=== PATIENT | female | born 1950 | race Caucasian/White ===

== ENCOUNTER 2018-10-06 20:36 | Inpatient (IN) | payer MEDICARE, OTHER ==
[~2018-10-06] VITALS: Ht 162.6 cm; Wt 101.6 kg
[2018-10-06 21:48] LABS: BASOPHILS ABSOLUTE AUTO 0.01 K/mm3 (0.00-0.23); BASOPHILS PERCENT AUTO 0 % (0-2); Hemoglobin 9.6 g/dL (11.5-16.0); LYMPHOCYTES ABSOLUTE AUTO 0.47 K/mm3 (0.84-5.20); LYMPHOCYTES PERCENT AUTO 4 % (21-46); MONOCYTES ABSOLUTE AUTO 1.49 K/mm3 (0.16-1.47); MONOCYTES PERCENT AUTO 14 % (4-13); Mean Corpuscular HGB 27.7 pg (26.0-34.0); Mean Corpuscular Volume 90 fL (80-100); Mean Platelet Volume 10.7 fL (9.1-12.4); Platelet Count 67 K/mm3 (150-400); RDW Coefficient Variation 15.9 % (11.7-14.2); RDW Standard Deviation 52.3 fL (35.1-46.3); Red Blood Cell Count 3.46 M/mm3 (3.80-5.20); White Blood Cell Count 10.98 K/mm3 (4.00-11.30)
[2018-10-06 21:50] LABS: EOSINOPHILS ABSOLUTE AUTO 0.02 K/mm3 (0.00-0.68); EOSINOPHILS PERCENT AUTO 0 % (0-6); IMMATURE GRAN ABSOLUTE AUTO 0.04 K/mm3 (0.00-0.10); IMMATURE GRAN PERCENT AUTO 0 % (0-1); NEUTROPHILS ABSOLUTE AUTO 8.95 K/mm3 (1.96-9.15); NEUTROPHILS PERCENT AUTO 81 % (41-73)
[2018-10-06 22:02] LABS: International Normalized Ratio 1.14; Prothrombin Time Results 11.9 Sec (9.7-11.5)
[2018-10-06 22:04] LABS: Albumin, Blood 2.6 g/dL (3.4-5.0); Albumin/Globulin Ratio 0.7 (0.8-1.8); Bilirubin, Total 1.9 mg/dL (0.1-1.0); Calcium, Blood 7.7 mg/dL (8.5-10.1); Creatinine, Blood 1.08 mg/dL (0.40-1.00); Globulin, Blood 3.7 g/dL (2.2-4.0); Potassium, Blood 3.4 mmol/L (3.5-5.5); Total Protein, Blood 6.3 g/dL (6.4-8.2)
[2018-10-07 00:11] LABS: Magnesium, Blood 1.6 mg/dL (1.6-2.4); Phosphorus, Blood 2.4 mg/dL (2.5-4.9)
--- NOTE | 2018-10-07 00:45 | NUR ---
RECEIVED HAND OFF FROM ER NURSE USING SBAR. TRANSPORTED TO ICU ROOM 12 VIA STRETCHER. TRANSFERED TO BED WITH FULL STAFF ASSISTANCE, TOLERATED WELL. LYING IN LOW DAVIS WITH EYES CLOSED. PT IS AROUSABLE BUT IS CONFUSED. ORIENTED TO SELF ONLY. APPARENT ADVERSE REACTION TO ATIVAN GIVEN IN ER. ORIENTED TO ROOM, CALL SYSTEM, AND POC, UNABLE TO VOICE UNDERSTANDING, WILL REATTEMPT LATER IN SHIFT. 20G PIV TO RIGHT HAND IS PATENT, FLUSHING WITH EASE WHILE INFUSING PROTONIX AT 10ML/HR. LEFT FA 20G PIV IS PATENT, FLUSHING WITH EASE WHILE INFUSING SANDOSTATIN AT 25ML/HR. LEFT AC 18G PIV IS PATENT, FLUSHING WITH EASE WHILE INFUSING BANANA BAG AT 200ML/HR. RESPIRATIONS EVEN AND UNLABORED ON ROOM AIR. LUNG SOUNDS COARSE THROUGHOUT AND DIMINISHED IN BASES BILATERALLY. ABDOMEN OBESE AND DISTENDED. BOWEL SOUNDS PRESENT IN ALL QUADS. CURRENTLY INCINTUNENT OF BOWEL AND BLADDER, WEARING DEPENDS. ORDERED NPO, INFORMED OF DIETARY STATUS, CONTINUES TO ASK FOR ICE WATER EACH TIME SHE WAKES UP. ORAL CARE PERFORMED AND MOUTH MOUSTUREIZER APPLIED, TOLERATED WELL. SCD'S TO BLE. DENIES PAIN, DISCOMFORT, OR FURTHER NEEDS AT THIS TIME. SAFETY MEASURES IN PLACE. WILL CONTINUE TO MONITOR.
[2018-10-07 03:31] LABS: Hematocrit 27.7 % (33.0-51.0); Hemoglobin 8.4 g/dL (11.5-16.0); Mean Corpuscular HGB 28.2 pg (26.0-34.0); Mean Corpuscular HGB Conc 30.3 g/dL (31.5-36.5); Mean Platelet Volume 10.7 fL (9.1-12.4); Platelet Count 58 K/mm3 (150-400); RDW Coefficient Variation 16.1 % (11.7-14.2); RDW Standard Deviation 55.5 fL (35.1-46.3); Red Blood Cell Count 2.98 M/mm3 (3.80-5.20); White Blood Cell Count 8.98 K/mm3 (4.00-11.30)
[2018-10-07 03:37] LABS: Mean Corpuscular Volume 93 fL (80-100)
[2018-10-07 03:49] LABS: Albumin, Blood 2.2 g/dL (3.4-5.0); Albumin/Globulin Ratio 0.7 (0.8-1.8); Bilirubin, Total 1.7 mg/dL (0.1-1.0); Bun/Creatinine Ratio 24.8 (12.0-20.0); Calcium, Blood 7.1 mg/dL (8.5-10.1); Creatinine, Blood 1.05 mg/dL (0.40-1.00); Globulin, Blood 3.2 g/dL (2.2-4.0); Potassium, Blood 3.5 mmol/L (3.5-5.5); Total Protein, Blood 5.4 g/dL (6.4-8.2)
[2018-10-07 05:19] LABS: BASOPHILS ABSOLUTE MAN 0.08 K/mm3 (0.00-0.23); BASOPHILS PERCENT MAN 1 % (0-2); EOSINOPHILS ABSOLUTE MAN 0.08 K/mm3 (0.00-0.68); EOSINOPHILS PERCENT MAN 1 % (0-6); LYMPHOCYTES ABSOLUTE MAN 0.53 K/mm3 (0.84-5.20); LYMPHOCYTES PERCENT MAN 6 % (21-46); MONOCYTES ABSOLUTE MAN 1.43 K/mm3 (0.16-1.47); MONOCYTES PERCENT MAN 16 % (4-13); NEUTROPHILS ABSOLUTE MAN 6.82 K/mm3 (1.96-9.15); SEG NEUTROPHILS PERCENT MAN 76 % (41-73); TOTAL CELLS COUNTED 100
--- NOTE | 2018-10-07 06:47 | NUR ---
SHIFT SUMMARY LYING IN LOW FOWLES WITH EYES CLOSED. ASSISTED OOB TO BSC. URINATED 700ML CONSENTRATED ORANGE URINE. ORIENTED X3, ABLE TO ANSWER QUESTIONS APPROPRIATELY. DENIES PAIN, DISCOMFORT, OR FURTHER NEEDS AT THIS TIME. SAFETY MEASURES IN PLACE. WILL GIVE HAND OFF TO ONCOMING SHIFT USING SBAR.
--- NOTE | 2018-10-07 07:15 | NUR ---
START OF SHIFT NOTE: RECEIVED REPORT FROM ANGELES KRAMER, ASSUMED CARE, PATIENT IS SLEEPING, BUT EASILY AWOKEN, ALERT AND ORIENTED, C/O OF BEING COLD AND HAVING A DRY MOUTH, ORAL SWABS PROVIDED, PATIENT IS NPO FOR PENDING GI PROCEDURE, LUNG SOUNDS ARE AUDIBLE WITHOUT STETHOSCOPE, WHEEZING EXPIRATORY, CRACKLES AND RHONCHI HEARD THROUGHOUT ALL LUNG MAYER, NSR WITH HR IN 90'S, SBP'S ARE IN LOW 100'S TO 120'S, BOWEL TONES ARE PRESENT, PATIENT USES BSC BUT ALSO WEAR ATTENDS, PIV'S X 4 IN L AND R FOREARMS, AFEBRILE, DENIES PAIN, PEDAL PULSES PALPABLE, CALL LIGHT IN REACH, WILL CONTINUE TO MONITOR.
--- NOTE | 2018-10-07 07:30 | NUR ---
DR GUERIN IN TO SEE PATIENT, NO NEW ORDERS RECEIVED.
--- NOTE | 2018-10-07 09:25 | NUR ---
PATIENT'S SON CALLED AND NOTIFIED ABOUT MOTHER'S CONDITION, ALSO SISTER CALLED AND WAS UPDATED.
--- NOTE | 2018-10-07 11:32 | NUR ---
DR. SIFUENTES CALLED AND THIS RN PROVIDED SOME HISTORY AND UPDATE ON PATIENT CONDITION, EGD WILL BE DONE TODAY, KEEP PATIENT NPO.
--- NOTE | 2018-10-07 12:45 | NUR ---
DR. SIFUENTES IN TO SEE PATIENT AND EXPLAIN PROCEDURE, FAMILY AT BEDSIDE WELL, ALL QUESTIONS WERE ANSWERED.
--- NOTE | 2018-10-07 13:15 | NUR ---
10/07/18 1315 Brandee Shea History, Chart, Medications and Allergies reviewed before start of procedure. PATIENT CONFIRMS NPO STATUS AND AGREES WITH SCHEDULED PROCEDURE. MONITOR INTACT WITH CONTINUOUS PULSE OXIMETRY AND INTERMITTENT BP. O2 VIA N/C INTACT THROUGHOUT SEDATION/PROCEDURE VIA POM. PATIENT DETERMINED TO BE ASA APPROPRIATE FOR PROPOFOL SEDATION PRIOR TO START OF PROCEDURE BY DR. SIFUENTES. PT HAS WHEEEZES, DR. SIFUENTES AWARE. 3-LEAD EKG REVIEWED WITH PHYSICIAN PRIOR TO START OF PROCEDURE.
--- NOTE | 2018-10-07 13:18 | NUR ---
DR. SIFUENTES AND DAY SURGERY TEAM IN PATIENT ROOM TO PERFORM EGD.
--- NOTE | 2018-10-07 14:05 | NUR ---
DAY SURGERY TEAM AND DR. SIFUENTES FINISHED PROCEDURE.
--- NOTE | 2018-10-07 14:48 | NUR ---
PER DR. SIFUENTES PATIENT MAY EAT AND DRINK, PATIENT HAS NO PROBLEMS SWALLOWING, DRINKING ICE WATER, ALSO RECEIVED 40 MG OF LASIX IV FOR POSSIBLE FLUID OVERLOAD, PROTONIX, OCTREOTIDE AND IVF'S DISCONTINUED, PATIENT HAD STATUS CHANGE TO MEDICAL FLOOR WITH TELEMETRY, TRAY WAS ORDERED, DR. SIFUENTES IN TO SPEAK WITH PATIENT AND FAMILY, CALL LIGHT IN REACH, WILL CONTINUE TO MONITOR.
--- NOTE | 2018-10-07 15:24 | NUR ---
IMAGING IN ROOM DOING ORDERED ABDOMINAL US, REPORT WAS CALLED TO ANGELES MCCLELLAND, ON MEDICAL FLOOR, PATIENT WILL BE MOVED TO ROOM 357 ONCE US IS COMPLETED.
--- NOTE | 2018-10-07 15:37 | NUR ---
DIRECTOR OF DISTANCE LEARNING IN TO COLLECT ORDERED LABS.
--- NOTE | 2018-10-07 16:00 | NUR ---
PATIENT WAS TRANSFERRED TO ROOM 357 VIA WHEELCHAIR, WITH ALL BELONGINGS AND WITH TELEMETRY.
--- NOTE | 2018-10-07 16:13 | NUR ---
PT TRANSFERRED FROM ICU 12 VIA W/C AND WAS ASSISTED X 1 STAND BY ASSIST. PT WAS A LITTLE UNBALANCED ON HER FEET FROM THE W/C TO BED BUT WAS ABLE TO LAY DOWN SAFELY. PT HAS WHEEZING IN ALL LOBES WITH TIGHTNESS IN UPPER LOBES. DR GUERIN WAS NOTIFIED AND AGREED THAT A RT EVAL WOULD BE BENEFICIAL AND RT WAS NOTIFIED. PT WAS ORIENTED TO ROOM AND NURSING STAFF AND IS CURRENTLY RESTING IN BED.
--- NOTE | 2018-10-07 16:48 | NUR ---
SHIFT SUMMARY: PT CONTINUES WITH WHEEZING SINCE ARRIVAL FROM ICU AND RT IS AWARE AND WILL BE ROUNDING ON PT. PT IS ALERT TO SELF, SITUATION AND FAMILY BUT STILL APPEARS TO BE GROGGY AND CONFUSED S/P PROCEDURE THIS AFTERNOON PRIOR TO TRANSFER TO MEDICAL FLOOR. BED ALARM IS SET AND ALTHOUGH PT VERBALIZES AN UNDERSTANDING OF THE USE OF THE CALL LIGHT SHE CONTINUES TO YELL OUT FOR "NURSE" OPPOSED TO USING THE BUTTON, NURSING CONTINUES TO ROUND FREQUENTLY ALONG WITH FREQUENT VITALS CHECKS. PT WAS ASSISTED X 1 TO BSC FOR TOILETING BUT NEEDS QUEING AND SAFETY REMINDERS TO WAIT FOR HELP AND ALLOW NURSING STAFF TO ASSIST HER FOR SAFETY. PT IS CURRENTLY WATCHING TV IN BED.
[2018-10-08 04:51] LABS: BASOPHILS ABSOLUTE AUTO 0.02 K/mm3 (0.00-0.23); BASOPHILS PERCENT AUTO 0 % (0-2); EOSINOPHILS ABSOLUTE AUTO 0.11 K/mm3 (0.00-0.68); EOSINOPHILS PERCENT AUTO 2 % (0-6); Hematocrit 26.4 % (33.0-51.0); Hemoglobin 8.2 g/dL (11.5-16.0); IMMATURE GRAN ABSOLUTE AUTO 0.06 K/mm3 (0.00-0.10); IMMATURE GRAN PERCENT AUTO 1 % (0-1); LYMPHOCYTES ABSOLUTE AUTO 0.48 K/mm3 (0.84-5.20); LYMPHOCYTES PERCENT AUTO 8 % (21-46); MONOCYTES ABSOLUTE AUTO 1.38 K/mm3 (0.16-1.47); MONOCYTES PERCENT AUTO 24 % (4-13); Mean Corpuscular HGB 27.2 pg (26.0-34.0); Mean Corpuscular HGB Conc 31.1 g/dL (31.5-36.5); Mean Platelet Volume 11.2 fL (9.1-12.4); NEUTROPHILS ABSOLUTE AUTO 3.73 K/mm3 (1.96-9.15); NEUTROPHILS PERCENT AUTO 65 % (41-73); Platelet Count 54 K/mm3 (150-400); RDW Standard Deviation 51.4 fL (35.1-46.3); Red Blood Cell Count 3.01 M/mm3 (3.80-5.20); White Blood Cell Count 5.78 K/mm3 (4.00-11.30)
[2018-10-08 04:56] LABS: Mean Corpuscular Volume 88 fL (80-100)
[2018-10-08 05:04] LABS: International Normalized Ratio 1.06; Prothrombin Time Results 11.2 Sec (9.7-11.5)
[2018-10-08 05:09] LABS: Alanine Aminotransfer (ALT/SGP 40 U/L (12-78); Albumin, Blood 2.2 g/dL (3.4-5.0); Albumin/Globulin Ratio 0.7 (0.8-1.8); Alk Phos 103 U/L (50-136); Anion Gap 9 mmol/L (6-16); Aspartate Aminotrans (AST/SGOT 32 U/L (12-37); Bilirubin, Total 2.2 mg/dL (0.1-1.0); Blood Urea Nitrogen 19 mg/dL (8-24); Bun/Creatinine Ratio 20.2 (12.0-20.0); CO2, Blood 23 mmol/L (21-32); Calcium, Blood 7.7 mg/dL (8.5-10.1); Chloride, Blood 102 mmol/L (98-108); Creatinine, Blood 0.94 mg/dL (0.40-1.00); Globulin, Blood 3.3 g/dL (2.2-4.0); Glomerular Filtration Rate >60 (60-); Glucose, Blood 128 mg/dL (70-99); Potassium, Blood 3.5 mmol/L (3.5-5.5); Sodium, Blood 134 mmol/L (136-145); Total Protein, Blood 5.5 g/dL (6.4-8.2)
--- NOTE | 2018-10-08 05:55 | NUR ---
SHIFT SUMMARY BED ALARM ON DURING THE NIGHT, PT UNSTEADY ON FEET WHILE UP. HAS BEEN TO BATHROOM X3. NOTED TO HAVE BLOOD IN STOOL. HOSPITALIST CALLED, WILL CONTINUE TO MONITOR. HGB 8.2 THIS AM. NO OTHER EVENTS NOTED DURING THE NIGHT, WILL CONTINUE TO MONITOR.
[2018-10-08] MEDS ORDERED: ESCI10 PO (12:40)
[2018-10-08] MEDS ORDERED: MAGOX 400400 MG PO (12:41)
[2018-10-08] MEDS ORDERED: FURO40 PO (12:41)
[2018-10-08] MEDS ORDERED: MELATONIN5 M1 PO (12:42)
[2018-10-08] MEDS ORDERED: SPIR25 PO (12:43)
[2018-10-08] MEDS ORDERED: METO25 PO (12:43)
[2018-10-08] MEDS ORDERED: TRAZ50 PO (12:44)
[2018-10-08] MEDS ORDERED: Vitamin D2000 UNIT PO (12:45)
--- NOTE | 2018-10-08 12:57 | NUR ---
PT DCD HOME WITH . ALL MEDS AND INSTRUCTIONS REVIEWED WITH PT WHO VERBALIZES AN UNDERSTANDING. ALL BELONGINGS SENT WITH PT.
[2018-10-10 03:07] LABS: HBSAG SCREEN Negative (Negative); HCV ANTIBODY 0.2 (0.0-0.9); HEP B CORE AB, TOT Negative (Negative)
[2018-10-10 05:09] LABS: COMPLEMENT C3, SERUM 92 mg/dL (82-167); COMPLEMENT C4, SERUM 19 mg/dL (14-44)
[2018-10-10 14:07] LABS: ANTI-DSDNA ANTIBODIES 2 IU/mL (0-9); RNP ANTIBODIES <0.2 AI (0.0-0.9); SJOGREN'S ANTI-SS-A <0.2 AI (0.0-0.9); SJOGREN'S ANTI-SS-B <0.2 AI (0.0-0.9); SMITH ANTIBODIES <0.2 AI (0.0-0.9)
== END 2018-10-08 13:08 | disposition home or self-care (01) | DRG 871 ==
LOC: ER 20:36 → MEDS 23:42 → ICUW 23:42 → MEDS 10-07 00:16 → ICUW 10-07 00:36 → MEDS 10-07 16:00 → ENPENDDIS 10-08 11:27 → MEDS 10-08 13:08
PROVIDERS: Emergency Medicine; Internal Medicine Gastroenterology; Nurse Practitioner Acute Care; ADMIT Hospitalist
PROC: 0W3P8ZZ Control Bleeding in Gastrointestinal Tract, Via Natural or Artificial Opening Endoscopic (ICD-10-PCS; principal; 2018-10-07 12:30)
DX: A41.51 Sepsis due to Escherichia coli [E. coli] (principal); I85.01 Esophageal varices with bleeding; N39.0 Urinary tract infection, site not specified; I50.42 Chronic combined systolic (congestive) and diastolic (congestive) heart failure; N17.9 Acute kidney failure, unspecified; K70.9 Alcoholic liver disease, unspecified; K55.20 Angiodysplasia of colon without hemorrhage; F10.10 Alcohol abuse, uncomplicated; I48.91 Unspecified atrial fibrillation; F32.9 Major depressive disorder, single episode, unspecified; F41.9 Anxiety disorder, unspecified; I10 Essential (primary) hypertension; I11.0 Hypertensive heart disease with heart failure; Z87.891 Personal history of nicotine dependence; K70.30 Alcoholic cirrhosis of liver without ascites; Z85.048 Personal history of other malignant neoplasm of rectum, rectosigmoid junction, and anus; R65.20 Severe sepsis without septic shock
CPT/HCPCS: 36415; 76700; 80053; 82103; 82104; 82105; 83516; 83605; 83735; 84100; 85025; 85610; 85730; 86038; 86160; 86225; 86235; 86317; 86704; 86708; 86803; 86850; 86900; 86901; 87040; 87340; 94640; 94760; 96365; 96366; 96368; 96375; 96376; 99285-25; C9113; J0696; J1940; J2060; J2250; J2354; J2704; J3411; J3475; J7030; J7042; J7050; J7060; J7120

== ENCOUNTER 2021-05-20 17:45 | Inpatient (IN) | payer MEDICARE ==
[~2021-05-20] VITALS: Ht 170.2 cm; Wt 99.4 kg
[~2021-05-20 17:45] MED LIST: ESCI10 PO; FURO40 PO; MAGOX 400400 MG PO; MELATONIN5 M1 PO; METO50 PO; SPIR25 PO; TRAZ50 PO; Vitamin D2000 UNIT PO
--- NOTE | 2021-05-20 18:48 | NUR ---
PT ARRIVED IN THE UNIT AT APPROX 1800, DIRECT ADMIT, ARRIVED VIA GURNEY TRANSPORTED BY EMS, TRANSFERRED TO PCU BED VIA SLIDER SHEET. PT IS ALERT AND ORIENTED X2, THOUGHT SHE WAS AT [facility] HOME, CONFUSED HAS SOME NON RELATED TOPICS CONVERSATION, LR BAG TO BE INFUSED BOLUS PER REPORT DR PETTIT AT BEDSIDE RN AGRRED TO FINISH LR BOLUS. PT HAS RECENT HUMERUS FX SLING ON RIGHT ARM IN PLACE. HAS MARI IN PLACE PT WITH OLIGURIA HAS ABOUT 50MLS OF URINE OUTPUT IN THE BAG. PT HAS REDNESS ON GROIN/PERIAREA, INCONTINENT OF BOWEL AND BLADDER PER REPORT. BEDREST AT THIS TIME. HAS SOME 2+ PITTING EDEMA BLE, AND ON ABDOMEN, BRUISING SCATTERED MOSTLY ON BUE. PT ORIENTED TO ROOM AND UNIT, USES THE CALL LIGHT HAS TO BE REORIENTED OF PROPER USE. VITALS HRR SR WITH PVCS AT 60-70'S, BP SYSTOLIC SOFT 90-100'S, SATS ABOVE 95% ON RA, AFEBRILE. PT RESTING IN BED RN WITH CALL LIGHTS IN REACH, WILL REPORT TO ONCOMING SHIFT
[2021-05-20] MEDS ORDERED: OXYC5 PO (20:25)
[2021-05-20 22:58] LABS: Hematocrit 22.8 % (33.0-51.0); Hemoglobin 7.3 g/dL (11.5-16.0); Mean Corpuscular HGB 33.2 pg (26.0-34.0); Mean Corpuscular Volume 104 fL (80-100); Mean Platelet Volume 11.4 fL (9.1-12.4); Platelet Count 77 K/mm3 (150-400); RDW Coefficient Variation 15.9 % (11.7-14.2); RDW Standard Deviation 59.7 fL (35.1-46.3); White Blood Cell Count 18.14 K/mm3 (4.00-11.30)
[2021-05-20 23:14] LABS: Albumin, Blood 1.9 g/dL (3.4-5.0); Albumin/Globulin Ratio 0.5 (0.8-1.8); Bilirubin, Total 7.1 mg/dL (0.1-1.0); Calcium, Blood 8.1 mg/dL (8.5-10.1); Creatinine, Blood 2.61 mg/dL (0.40-1.00); Globulin, Blood 3.5 g/dL (2.2-4.0); Potassium, Blood 3.5 mmol/L (3.5-5.5); Total Protein, Blood 5.4 g/dL (6.4-8.2)
--- NOTE | 2021-05-21 03:23 | NUR ---
TRANSFER NOTE: REPORT CALLED TO RICHARD MANUEL. PT HAS BEEN HYPOTENSIVE WITH MAP IN 50'S MOST OF SHIFT. PT HAS HAD >3.5 L FLUIDS. PT MAP BRIEFLY IMPROVED WITH LAST BOLUS TO 83, BUT IMMEDIATELY DECREASED AGAIN. PRESSURE SITES AND CUFFS HAVE BEEN CHANGED TWICE WITH LITTLE TO NO CHANGE. PT IS INTERMITTENTLY PLEASANTLY CONFUSED. RESPIRATORY STATUS WNL ON RA.
--- NOTE | 2021-05-21 03:52 | NUR ---
RECEIVED PT TO ICU 15 AT 0310, PT ALERT, ANSWERING QUESTIONS THAT STAFF ARE DISCUSSING ABOUT HER, SHE DOESN'T KNOW WHERE (CITY) SHE IS, SHE DOES KNOW SHE IS IN THE HOSPITAL, DENIES PAIN, STATES DOESN'T KNOW HOW LONG SHE HAS BEEN SICK. SHE IS CONTINUALLY MAKING A FACIAL GRIMACE. MARI TO GRAVITY DRAINAGE WITH MINIMAL DARK YELLOW RETURN. RIGHT ARM IN SLING, PT PULLED OFF THE BIOX AND WAS CHEWING ON IT, WHEN ASKED WHY SHE WAS DOING SUCH, SHE SAID, "I'M NOT CHEWING ON IT". LEFT ARM WITH POWER GLIDE WITH LR @ 125, LEVO @ 4MCG. SALINE LOCK IN LEFT AC AND BP CUFF AROUND THE LEFT WRIST. BP LOW, MAP <65, TEMP 97.9 HEART RATE 70-80. PT FALLS ASLEEP WHEN NOT BOTHERED. LUNGS CLEAR, ABD SOFT, NON TENDER, LEGS EDEMATOUS L>R, PULSES PALPABLE. PT WITH RUNS OF BIJEMINY.
--- NOTE | 2021-05-21 07:08 | NUR ---
PT CONTINUED TO HAVE BP WITH MAP<60, LEVOPHED UP TO 12MCG/HR PER POWER GLIDE. DR. BUNDY NOTIFIED AND ALBUMIN ORDERED, DR. BUNDY THEN CALLED BACK TO SAY HE WOULD BE ABLE TO PLACE A LINE. PT TOLD ABOUT NEED FOR LINE, ASKED FOR PERMISSION. PT STATED SHE UNDERSTOOD. HERE TO PLACE LINE. DURING PLACEMENT PT WITH MUCH ECTOPY AND HAD A RUN OF VTACH. AWARE. PT CONTINUED WITH PULSES T/O AND IT WAS SELF RESOLVING. PT ANSWERING AND ACKNOWLEDGING THAT SHE WAS OK. CHEST XRAY AND LABS ORDERED. PT TOLERATED THE PROCEDURE WELL. SHE CONTINUES TO BE DROWSY BUT EASILY AROUSABLE. MARI WITH TOTAL OF 130ML OUT. FLUIDS AT ALMOST 4L.
[2021-05-21 07:46] LABS: Source, Urine Foley catheter
[2021-05-21 07:49] LABS: Appearance, Urine Hazy (Clear); Blood, Urine 5+ (Neg); Color, Urine Amber (P-Yellow); Glucose Qualitative, Urine Neg (Neg); Ketones, Urine 1+ (Neg); Leukocyte Esterase, Urine 3+ (Neg); Nitrite, Urine Neg (Neg); Protein, Urine 3+ (Neg); Urobilinogen, Urine 2+ (Normal)
[2021-05-21 08:01] LABS: Bilirubin, Urine 2+ (Neg)
[2021-05-21 08:02] LABS: White Blood Cells, Urine 25-50 /hpf (0-5)
[2021-05-21 08:04] LABS: Squamous Epithelial Cells Rare /hpf (Few)
[2021-05-21 08:05] LABS: Bacteria Many /hpf
[2021-05-21 08:08] LABS: Other Crystals Few /hpf
[2021-05-21 08:09] LABS: Granular Casts 0-2 /lpf (0); Hyaline Casts 0-2 /lpf (0-2)
[2021-05-21 08:11] LABS: Hematocrit 20.4 % (33.0-51.0); Hemoglobin 6.7 g/dL (11.5-16.0); Mean Corpuscular HGB 33.3 pg (26.0-34.0); Mean Corpuscular HGB Conc 32.8 g/dL (31.5-36.5); Mean Corpuscular Volume 102 fL (80-100); Mean Platelet Volume 10.7 fL (9.1-12.4); Platelet Count 108 K/mm3 (150-400); RDW Coefficient Variation 15.9 % (11.7-14.2); RDW Standard Deviation 58.9 fL (35.1-46.3); Red Blood Cell Count 2.01 M/mm3 (3.80-5.20); White Blood Cell Count 24.56 K/mm3 (4.00-11.30)
[2021-05-21 08:39] LABS: BAND PERCENT MAN 7 % (0-8); BASOPHILS PERCENT MAN 0 % (0-2); EOSINOPHILS ABSOLUTE MAN 0.49 K/mm3 (0.00-0.68); EOSINOPHILS PERCENT MAN 2 % (0-6); LYMPHOCYTES ABSOLUTE MAN 0.49 K/mm3 (0.84-5.20); LYMPHOCYTES PERCENT MAN 2 % (21-46); MONOCYTES ABSOLUTE MAN 0.98 K/mm3 (0.16-1.47); MONOCYTES PERCENT MAN 4 % (4-13); MYELOCYTE ABSOLUTE MAN 0.24 K/mm3 (0.00-0.00); MYELOCYTE PERCENT MAN 1 % (0-0); NEUTROPHILS ABSOLUTE MAN 22.34 K/mm3 (1.96-9.15); SEG NEUTROPHILS PERCENT MAN 84 % (41-73); TOTAL CELLS COUNTED 100
[2021-05-21 08:47] LABS: Albumin, Blood 2.1 g/dL (3.4-5.0); Albumin/Globulin Ratio 0.7 (0.8-1.8); Bilirubin, Total 7.6 mg/dL (0.1-1.0); Bun/Creatinine Ratio 18.4 (12.0-20.0); Calcium, Blood 8.1 mg/dL (8.5-10.1); Creatinine, Blood 2.66 mg/dL (0.40-1.00); Globulin, Blood 3.1 g/dL (2.2-4.0); Potassium, Blood 3.5 mmol/L (3.5-5.5); Total Protein, Blood 5.2 g/dL (6.4-8.2)
[2021-05-21 16:52] LABS: Hematocrit 22.6 % (33.0-51.0); Hemoglobin 7.4 g/dL (11.5-16.0)
--- NOTE | 2021-05-21 17:27 | NUR ---
SHIFT SUMMARY NO ACUTE CHANGES THIS SHIFT. PT SLEPT THROUGH MOST OF THE DAY. PT ALERT WHEN AWAKE, BUT CONFUSED. PT ABLE TO FOLLOW SOME SIMPLE DIRECTIONS. SPEECH IS NONSENSICAL. PT WITH CENTRAL LINE TO RIGHT IJ WITH LEVOPHED INFUSING AT 8 MCG/MIN AT THIS TIME. LR INFUSING AT 125 ML/HR. PT RECIEVED 1 UNIT OF PRBC'S THIS SHIFT. MARI TEMP PROBE REMAINS IN PLACE WITH MINIMAL AMOUNT OF DARK YELLOW URINE OUTPUT NOTED. RIGHT ARM SLING REMAINS IN PLACE. PT HAS DENIED PAIN THIS SHIFT, BUT GRIMMACES WITH REPOSITIONING. PT ON ROOM AIR. VITAL SIGNS STABLE. PT SPOUSE AT BEDSIDE THIS AFTERNOON AND UPDATED TO PT CONDITION AND PLAN OF CARE. WILL CONTINUE TO MONITOR AND REPORT OFF TO ONCOMING RN.
--- NOTE | 2021-05-21 22:02 | NUR ---
ASSUMED CARE OF [facility] AT 1900, SHE WAS ON THE BEDPAN AT THE TIME. SHE IS VERY LIMITED IN HER LEG MOVEMENT AND DOES THE OPPOSITE OF WHAT IS ASKED. ie TURN LEFT: MOVES RIGHT, RELAX YOUR HEAD: HOLDS HER HEAD UP, BEND YOUR LEG: STRAIGHTENS IT OUT. SHE WAS THEN ABLE TO HOLD A CONVERSATION, TALKING ABOUT HER SON VISITING. SAID SHE HASN'T SEEN HER . ALSO ASKING ABOUT WHY SHE IS HERE, WHAT THIS PLACE IS CALLED, HOW DID SHE GET HERE. ASKED TO GO "PEE" REMINDED THAT SHE HAS THE CATHETER. ASKED FOR COFFEE, DECAF WITH 2 SUGARS AND 2 CREAMS. TRIED TALKING TO HER ABOUT WHAT HER BEVERAGE OF CHOICE WAS WHEN SHE WAS DRINKING, SHE SAID SHE DOESN'T DRINK ALCOHOL. ASKED HER ABOUT "BACK IN THE DAY, WHAT WAS YOUR CHOICE OF BEVERAGE." SHE SAID COFFEE, WATER AND ORANGE SODA. SHE TOLD ME SHE BROKE HER LEG WHEN SHE BROKE HER ARM. SHE SAID IT IS FIXED ALREADY, DOESN'T KNOW HOW. SAID SHE DIDN'T KNOW WHICH LEG IT WAS EITHER. LUNG SOUNDS ARE CLEAR, BREATHING EASY ON RA. HEART RATE IS IRREGULAR, GOES BETWEEN SINUS AND ATRIAL FIB AND SINUS WITH PAC'S. BP LABILE, ADJUSTING LEVO FROM 8MCG TO 4MCG TO 6MCG CURRENTLY. MARI TO GRAVITY DRAINAGE WITH SEDIMENT AND CLOUDINESS, BETTER OUTPUT THAN PREVIOUS SHIFT. SHE HAS HAD ICE CREAM AND COFFEE. NOW DRINKING WATER. TRIED TO SHOW HER THE REMOTE AND CALL SYSTEM, SHE STATES SHE UNDERSTANDS, BUT ISN'T ABLE TO DEMONSTRATE ABILITY. COMPLAINED OF PAIN, 10/10, MEDICATED WITH FENTANYL AND ORAL PAIN MEDS.
[2021-05-22 04:03] LABS: Hematocrit 20.9 % (33.0-51.0); Hemoglobin 6.9 g/dL (11.5-16.0); Mean Corpuscular HGB 32.7 pg (26.0-34.0); Mean Corpuscular Volume 99 fL (80-100); Platelet Count 73 K/mm3 (150-400); RDW Coefficient Variation 16.6 % (11.7-14.2); RDW Standard Deviation 59.7 fL (35.1-46.3); Red Blood Cell Count 2.11 M/mm3 (3.80-5.20); White Blood Cell Count 15.47 K/mm3 (4.00-11.30)
[2021-05-22 04:26] LABS: BAND PERCENT MAN 7 % (0-8); BASOPHILS PERCENT MAN 0 % (0-2); EOSINOPHILS ABSOLUTE MAN 0.46 K/mm3 (0.00-0.68); EOSINOPHILS PERCENT MAN 3 % (0-6); LYMPHOCYTES PERCENT MAN 2 % (21-46); MONOCYTES ABSOLUTE MAN 0.61 K/mm3 (0.16-1.47); MONOCYTES PERCENT MAN 4 % (4-13); MYELOCYTE ABSOLUTE MAN 0.15 K/mm3 (0.00-0.00); MYELOCYTE PERCENT MAN 1 % (0-0); NEUTROPHILS ABSOLUTE MAN 13.92 K/mm3 (1.96-9.15); SEG NEUTROPHILS PERCENT MAN 83 % (41-73); TOTAL CELLS COUNTED 100
[2021-05-22 04:28] LABS: Albumin, Blood 1.9 g/dL (3.4-5.0); Albumin/Globulin Ratio 0.7 (0.8-1.8); Bilirubin, Total 9.3 mg/dL (0.1-1.0); Bun/Creatinine Ratio 19.5 (12.0-20.0); C-REACTIVE PROTEIN, EXT RANGE 8.48 mg/dL (0.000-0.300); Creatinine, Blood 2.57 mg/dL (0.40-1.00); Globulin, Blood 2.7 g/dL (2.2-4.0); Magnesium, Blood 1.2 mg/dL (1.6-2.4); Phosphorus, Blood 3.1 mg/dL (2.5-4.9); Potassium, Blood 3.5 mmol/L (3.5-5.5); Thyroid Stimulating Hormone 2.87 uIU/mL (0.360-4.800); Total Protein, Blood 4.6 g/dL (6.4-8.2)
--- NOTE | 2021-05-22 05:57 | NUR ---
FARAZ HAS AWAKENED THIS MORNING, SHE KNOWS SHE IS AT THE HOSPITAL BUT ISN'T SURE WHY SHE IS HERE. LABS CAME BACK AND WAS CALLED. ORDERS REC'D AND WILL BE TRANSFUSING ANOTHER UNIT OF BLOOD THIS MORNING. PT JUST SAYS, "HUH". URINE OUTPUT IMPROVED FROM YESTERDAY, 30ML OUT YESTERDAY VS. 350ML OUT TONIGHT. PT REPOSITIONED. CONTINUES TO GRIMACE WITH ANY MOVEMENT OF THAT ARM. CONTINUES ON NOREPINEPHRINE AT 6MCG/MIN. NO OTHER CHANGES.
--- NOTE | 2021-05-22 07:25 | NUR ---
Assumed care of pt at 0700. Report received from Ambar REYNOSO. Levophed 6 mcg/min. Blood transfusion in progress.
--- NOTE | 2021-05-22 09:06 | NUR ---
Dr Duke in to see patient. Discussed pt's vasopressor requirements with Dr Duke. Discussed that pt is increasingly wheezy after blood transfusion. Plan to give pt lasix. Discussed that pt is concerned she is not receiving her lexapro. Plan to add.
--- NOTE | 2021-05-22 11:24 | NUR ---
Spiritual Care - "Things we care to know" Pt. is awake and welcomes my visit. Spouse and sister are present. Introduce Things We Care to Know, pt. and family verbalized interest. A brief survey was interrupted as Pt. needed to be re-positioned and cleaned up. Return to finish survey. Pt. and family verbalized gratitude for the spiritual care visit.
--- NOTE | 2021-05-22 17:31 | NUR ---
SUMMARY Neuro: Pt A&O x 2. Answers questions, follows commands, verbalizes needs. 3 mm pupils, PERRL. Musculoskeletal: Dependent care for ADLs. Requires max assist to reposition. R arm remains in sling. Cardiac: SR per monitor. Levophed off at this time. 2 + edema ABD to feet. GI: Several incontinent voids of stool. C-Diff pending. : Mace catheter remains in place for strict measurement of I&O Skin: No changes to initial assessment. Psychosocial: Less confused compared to intial assessment.
--- NOTE | 2021-05-22 20:00 | NUR ---
ASSUMED CARE OF PT AT 1915. REPORT RECEIVED. PT PRESENTS IN BED. ALERT TO SELF. KNOWS THAT SHE IS IN THE HOSPITAL. STATES 8 TO YEAR. THE PRESIDENT, "THAT OTILIA". WITH TURNING PT, SHE DOES GRIMACE WITH ANY TOUCH. IS RESISTANT WITH TURNS. HAS HAD INCONTINENT BM. OF NOTE: STOOL HAS WORKED UP INTO VAGINAL AREA. GOOD ELGIN CARE DONE. PENDING C-DIFF RESULTS. WILL REVIEW CHART AND PLAN OF CARE FOR THIS PT.
[2021-05-22 21:36] LABS: C DIFFICILE DNA POSITIVE (Negative)
--- NOTE | 2021-05-22 23:11 | NUR ---
C-DIFF LAB COMES BACK POSITIVE. CALL MADE TO DR PETTIT WITH RESULTS. ORDERS RECEIVED. WILL CONSIDER PLACING RECTAL/FECAL COLLECTION BAG FOR PT TO HELP PREVENT STOOL FROM REMAINING ON SKIN, AND TO PREVENT STOOL MIGRATION INTO VAGINAL AREA. HAVE EXPLAINED THIS POSSIBLE PLAN OF CARE. DIFFICULT TO ASSESS PT'S COMPREHENSION WITH THIS. EACH TURN PT HAS BEEN FOUND WITH LOOSE STOOL. SECONDARY TO PT'S HISTORY OF ANAL CANCER, WILL NOT USE Entrada SYSTEM FOR THIS REASON. HAVE MEDICATED PT WITH OXYCODONE FOR RIGHT ARM PAIN. PT CURRENTLY SLEEPING. WILL CONTINUE TO MONITOR.
--- NOTE | 2021-05-23 00:57 | NUR ---
PT WAS INCONTINENT OF STOOL AGAIN. WITH THE ASSIST OF THREE PERSON, PT WAS TURNED TO HER SIDE. AREA CLEANSED. WITH ELGIN BOTTLE AND WARM SOAPY WATER, VAGINAL CLEANSING TO ELIMINATE ANY RESIDUAL STOOL DONE. FECAL BAG PLACED SECONDARY TO DETERIORATION OF PERIANAL SKIN INTEGRITY. BRUCE DAILY RN PLACED BAG. STATED THAT PERIANAL REGION BECOMING ESCORIATED TO THE POINT OF BEING VERY FRIABLE. TEACHING DONE WITH PT ON RATIONALE FOR THIS BEING PLACED DONE. CONTINUING WITH Q 2 HOUR TURNS. PT RECEIVES FIRST DOSE OF VANCOMYCIN PO. NO S/S ADVERSE REACTIONS TO NOTE. MEDICATION TEACHING DONE WELL.
[2021-05-23 05:02] LABS: Hematocrit 23.2 % (33.0-51.0); Hemoglobin 7.8 g/dL (11.5-16.0); Mean Corpuscular HGB 31.8 pg (26.0-34.0); Mean Corpuscular HGB Conc 33.6 g/dL (31.5-36.5); Mean Corpuscular Volume 95 fL (80-100); Mean Platelet Volume 10.5 fL (9.1-12.4); Platelet Count 67 K/mm3 (150-400); RDW Coefficient Variation 19.8 % (11.7-14.2); RDW Standard Deviation 69.2 fL (35.1-46.3); Red Blood Cell Count 2.45 M/mm3 (3.80-5.20); White Blood Cell Count 12.58 K/mm3 (4.00-11.30)
[2021-05-23 06:20] LABS: Albumin, Blood 1.9 g/dL (3.4-5.0); Albumin/Globulin Ratio 0.6 (0.8-1.8); Bilirubin, Total 10.2 mg/dL (0.1-1.0); Bun/Creatinine Ratio 21.4 (12.0-20.0); Calcium, Blood 8.1 mg/dL (8.5-10.1); Creatinine, Blood 2.52 mg/dL (0.40-1.00); Globulin, Blood 3.1 g/dL (2.2-4.0); Magnesium, Blood 1.6 mg/dL (1.6-2.4); Potassium, Blood 3.5 mmol/L (3.5-5.5)
--- NOTE | 2021-05-23 06:30 | NUR ---
UNFORTUNATELY PT'S RECTAL BAG BEGAN TO LEAK. DID NEED TO PLACE NEW WHICH HAS REMAINED INTACT TO THIS POINT. PT HAS BEEN MEDICATED WITH OXYCODONE FOR SHOULDER PAIN. PT WAS ABLE TO SLEEP AFTERWARDS. PT WOULD COMPLAIN OF PAIN WITH ANY TACTILE STIMULI EVEN VERY SLIGHT. PT HAS REMAINED WITHOUT NEED FOR PRESSORS THIS NIGHT. WILL CONTINUE TO MONITOR PT, AND WILL REPORT OFF TO ONCOMING RN.
--- NOTE | 2021-05-23 07:15 | NUR ---
Assumed care of pt at 0700. Report received from Isreal REYNOSO. Pt on room air. SR per monitor. Levophed remains off.
--- NOTE | 2021-05-23 10:01 | NUR ---
Dr Duke in to see patient. Provider states pt may be medical floor status with telemetry. Provider states to give spironolactone and metoprolol
--- NOTE | 2021-05-23 15:30 | NUR ---
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 Spouse called unit from home and provided "ciprofloxacin" as name of medication that caused this reaction for patient. Dr Duke notified. Ciprofloxacin added to pt's allergies.
--- NOTE | 2021-05-23 17:04 | NUR ---
Plan for patient to transfer to room 303. Report given to RN to assume care. Message left with pt's spouse to update.
--- NOTE | 2021-05-23 18:16 | NUR ---
PT TRANSFERRD TO MEDICAL FROM ICU AT 1715. Handoff reported from POWDER LINE REPAIRER. Pt able to state , and that she was in a hospital. Disoriented to time/situation. Left arm in sling, pt unable to help with turns. Pt having loose stools, positive for CDIFF, contact precautions in place. Tele on, vitals signs stable. Mace patent, draining. +3 pitting edema, lower body/extremities.
--- NOTE | 2021-05-24 04:38 | NUR ---
SHIFT SUMMARY A/O TO SELF ONLY. BEDREST THIS SHIFT. PASSING MULTIPLE RUNNY STOOLS THIS SHIFT, MARI DRAINING TO GRAVITY. URINE IS DARK MISTY AND HAS SEDIMENT. PT SKIN IS RED AND IRRITATED IN ELGIN AREA AND ON BUTTOCKS, BARRIER CREAM AND POWDER APPLIED. REPOSITIONED Q2H. CATH CARE COMPLETE. VSS, ON RA. R ARM REMAINS IN SLING. PT CONFUSED AND APPEARS TO BE HALLUCINATING AT TIMES. NO PAIN REPORTED UNLESS WE WERE MOVING PATIENT. WILL CONTINUE TO MONITOR AND REPORT TO ONCOMING RN.
[2021-05-24 05:11] LABS: Hematocrit 25.7 % (33.0-51.0); Hemoglobin 8.5 g/dL (11.5-16.0); Mean Corpuscular HGB 31.6 pg (26.0-34.0); Mean Corpuscular HGB Conc 33.1 g/dL (31.5-36.5); Mean Corpuscular Volume 96 fL (80-100); Platelet Count 85 K/mm3 (150-400); RDW Coefficient Variation 19.3 % (11.7-14.2); RDW Standard Deviation 66.4 fL (35.1-46.3); Red Blood Cell Count 2.69 M/mm3 (3.80-5.20); White Blood Cell Count 9.41 K/mm3 (4.00-11.30)
[2021-05-24 05:47] LABS: Albumin/Globulin Ratio 0.6 (0.8-1.8); Bilirubin, Total 10.2 mg/dL (0.1-1.0); Bun/Creatinine Ratio 24.9 (12.0-20.0); Calcium, Blood 8.1 mg/dL (8.5-10.1); Creatinine, Blood 2.17 mg/dL (0.40-1.00); Globulin, Blood 3.5 g/dL (2.2-4.0); Magnesium, Blood 1.7 mg/dL (1.6-2.4); Percent Saturation 49.5 % (15.0-50.0); Potassium, Blood 3.4 mmol/L (3.5-5.5); Total Protein, Blood 5.5 g/dL (6.4-8.2)
[2021-05-24 15:37] LABS: Hematocrit 24.7 % (33.0-51.0); Hemoglobin 8.3 g/dL (11.5-16.0); Mean Corpuscular HGB 31.7 pg (26.0-34.0); Mean Corpuscular HGB Conc 33.6 g/dL (31.5-36.5); Mean Corpuscular Volume 94 fL (80-100); Mean Platelet Volume 10.5 fL (9.1-12.4); Platelet Count 70 K/mm3 (150-400); RDW Coefficient Variation 19.1 % (11.7-14.2); RDW Standard Deviation 66.4 fL (35.1-46.3); Red Blood Cell Count 2.62 M/mm3 (3.80-5.20); White Blood Cell Count 9.01 K/mm3 (4.00-11.30)
--- NOTE | 2021-05-24 16:53 | NUR ---
PT AOX2 WITH CONFUSION AND HALUCINATIONS. PT WAS SEEING A CAT, DOG AND MAN IN ROOM ALL DAY. PT IS STILL HAVING LOOSE BMS AND IS VERY RED AND RAW FROM THE STOOL AND CONSTANT CLEAN UP. PT HAS BEEN CLEANED WELL EACH TIME AND REPOSITIONED. PT HAS BEEN WANTING TO TAKE R FX ARM OUT OF SLING AND HAS TO HAVE IT REPOSITIONED EACH TIME SHE IS CHECKED ON . PT'S SKIN IS VERY YELLOW DUE TO THE HIGH BILIRUBIN. PT ALSO HAS VERY ORANGE URINE DUE TO THIS. PT HAS NOT BEEN IMPULSIVE, BUT TALKS THAT SHE IS GOING TO WALK OUT OR NEEDS TO GO SOMEWERE. BED ALARM IS IN PLACE AND PT NEEDS LIFT USED OR IS A VERY HEAVY TWO PERSON TURN IN BED. CALL LIGHTI IS WITHIN REACH WILL CONTINUE TO MONITOR.
[2021-05-25 05:04] LABS: Albumin, Blood 1.8 g/dL (3.4-5.0); Albumin/Globulin Ratio 0.5 (0.8-1.8); Bilirubin, Total 8.4 mg/dL (0.1-1.0); Bun/Creatinine Ratio 29.8 (12.0-20.0); Calcium, Blood 8.2 mg/dL (8.5-10.1); Creatinine, Blood 1.91 mg/dL (0.40-1.00); Globulin, Blood 3.4 g/dL (2.2-4.0); Potassium, Blood 3.3 mmol/L (3.5-5.5); Total Protein, Blood 5.2 g/dL (6.4-8.2)
--- NOTE | 2021-05-25 06:04 | NUR ---
SHIFT SUMMARY: PT IS A/OX SELF. THE PT DID HAVE A FEW BMs THIS SHIFT. MARI CATH IS PATENT W/ DARK MISTY URINE. HER RT ARM SLING REMAINED IN PLACE. SHE IS NOT ABLE TO HELP WITH TURNING AND REPOSITIONING--SHE'S A TWO PERSON MAX. HER BED IS IN THE LOWEST POSITION AND ALARM IS SET. WE'LL CONTINUE TO MONITOR THE REST OF THE SHIFT.
--- NOTE | 2021-05-25 17:02 | NUR ---
END OF SHIFT SUMMARY: Pt AOx1. Pt tried to get OOB this am, found pt dangling on side of bed. Pt had 2x large diarrhea stools this shift. Jocelynn-area red/excoriated, skin folds red/moist. Cleaned and applied cream to reddened areas. Mace care done, patent draining to gravity. Urine dark/brown. Pt feeding self meals, helped her eat lunch. No other concerns at this time.
--- NOTE | 2021-05-26 06:25 | NUR ---
SHIFT SUMMARY: PT REMAINS A/O TO SELF. PT SEEMS TO BE HAVING VISUAL HALLUCINATIONS, ALTHOUGH SHE IS REDIRECTABLE. RA. NO TELE. SHE KEPT HER RT. ARM IN THE SLING THE ENTIRE SHIFT. SHE DID ACQUIRE A SKIN TEAR TO HER LEFT FOREARM; IT WAS CLEANED, DRESSING APPLIED, AND CDI. SHE CONTINUES TO TAKE MEDICATIONS WHOLE WITH WATER, ONE AT A TIME. NO OTHER ACUTE CHANGES THIS NOC SHIFT AND WE'LL CONTINUE TO MONITOR.
[2021-05-26 09:20] LABS: Albumin, Blood 1.8 g/dL (3.4-5.0); Albumin/Globulin Ratio 0.5 (0.8-1.8); Bilirubin, Total 7.2 mg/dL (0.1-1.0); Bun/Creatinine Ratio 33.9 (12.0-20.0); Calcium, Blood 8.3 mg/dL (8.5-10.1); Creatinine, Blood 1.77 mg/dL (0.40-1.00); Globulin, Blood 3.8 g/dL (2.2-4.0); Potassium, Blood 3.4 mmol/L (3.5-5.5); Total Protein, Blood 5.6 g/dL (6.4-8.2)
--- NOTE | 2021-05-26 18:49 | NUR ---
END OF SHIFT SUMMARY: Pt had 3x large loose liquid stools this shift, periarea/peranal red/excoriated/painful, MD ordered continue hanks for skin protection. Skin folds red/moist. Pt OOB, sat in recliner and ate dinner. Pt still disoriented, but mentation improving, pt able to carry on conversation and answer questions appropriately. vitals stable. no other concerns at this time.
[2021-05-27] MEDS ORDERED: PANTOPRAZOLE SO40 M2 PO (00:23)
[2021-05-27] MEDS ORDERED: CONSTULOSE10 GM/155 PO (00:27)
--- NOTE | 2021-05-27 02:17 | NUR ---
05/26/21 2210 PT LYING IN BED, REPORTS OCCASIONAL SOB, ON RA AT 100%. REDNESS AND SBD IN ABD FOLDS AND ELGIN AREA. MARI, CLEAR MISTY URINE. NO OTHER APPARENT SIGNS OF DISTRESS. CALL LIGHT IS IN REACH.
--- NOTE | 2021-05-27 02:18 | NUR ---
0000 PT LYING IN BED, WAKES EASLY TO VERBAL STIMULI. NO APPARENT SIGNS OF DISTRESS. CALL LIGHT IS IN REACH.
--- NOTE | 2021-05-27 04:27 | NUR ---
0200 PT LYING IN BED, EYES CLOSED, APPEARS TO BE RESTING. BREATHING IS EVEN, UNLABORED. NO APPARENT SIGNS OF DISTRESS. CALL LIGHT IS IN REACH.
--- NOTE | 2021-05-27 04:28 | NUR ---
PT LYING IN BED, EYES CLOSED, APPEARS TO BE RESTING.BREATHING IS EVEN, UNLABORED. NO APPARENT SIGNS OF DISTRESS. CALL LIGHT IS IN REACH.
--- NOTE | 2021-05-27 04:28 | NUR ---
PT IS AAO X 2, ON RA AT 100%. PT REPORTS OCCASIONAL SOB, LUNGS ARE CLEAR BUT DIMINISHED. MARI, CLEAR MISTY URINE. EDEMA 3-4+ PITTING LE'S.
--- NOTE | 2021-05-27 06:18 | NUR ---
PT LYING IN BED, EYES CLOSED, APPEARS TO BE RESTING. BREATHING IS EVEN, UNLABORED. NO APPARENT SIGNS OF DISTRESS. CALL LIGHT IS IN REACH. NO OTHER CHANGES THIS SHIFT.
[2021-05-27 09:16] LABS: Albumin, Blood 2.3 g/dL (3.4-5.0); Albumin/Globulin Ratio 0.6 (0.8-1.8); Bilirubin, Total 6.8 mg/dL (0.1-1.0); Bun/Creatinine Ratio 37.3 (12.0-20.0); Calcium, Blood 8.4 mg/dL (8.5-10.1); Creatinine, Blood 1.58 mg/dL (0.40-1.00); Globulin, Blood 3.7 g/dL (2.2-4.0); Magnesium, Blood 1.7 mg/dL (1.6-2.4); Potassium, Blood 3.7 mmol/L (3.5-5.5)
[2021-05-27 09:21] LABS: Hematocrit 24.4 % (33.0-51.0); Hemoglobin 8.2 g/dL (11.5-16.0); Mean Corpuscular HGB 32.5 pg (26.0-34.0); Mean Corpuscular HGB Conc 33.6 g/dL (31.5-36.5); Mean Corpuscular Volume 97 fL (80-100); Mean Platelet Volume 10.4 fL (9.1-12.4); Platelet Count 73 K/mm3 (150-400); RDW Coefficient Variation 19.4 % (11.7-14.2); RDW Standard Deviation 65.7 fL (35.1-46.3); Red Blood Cell Count 2.52 M/mm3 (3.80-5.20); White Blood Cell Count 6.55 K/mm3 (4.00-11.30)
--- NOTE | 2021-05-27 18:43 | NUR ---
END OF SHIFT SUMMARY: Pt doing well today, continuing to see improvements in mentation, AOx3. Patient awake most of the day, conversing with , and answering questions about care, s/sx. Vitals stable. Continuing to have liquid stools, jose alejandro area red/excoriated, cleansed and applied barrier cream. Mace patent, draining to gravity. Pt worked with therapy today. C/o pain and requested tylenol. Pt eager to go home, pt still requiring full 2x persons/hands on care. Pt unable to help turn and hold, during cares. Pt able to feed herself and take pills whole with water.
[2021-05-28 06:05] LABS: Hematocrit 24.8 % (33.0-51.0); Mean Corpuscular HGB 31.7 pg (26.0-34.0); Mean Corpuscular HGB Conc 32.3 g/dL (31.5-36.5); Mean Corpuscular Volume 98 fL (80-100); Mean Platelet Volume 10.6 fL (9.1-12.4); Platelet Count 66 K/mm3 (150-400); RDW Coefficient Variation 19.3 % (11.7-14.2); RDW Standard Deviation 68.1 fL (35.1-46.3); Red Blood Cell Count 2.52 M/mm3 (3.80-5.20); White Blood Cell Count 6.81 K/mm3 (4.00-11.30)
[2021-05-28 06:30] LABS: Albumin/Globulin Ratio 0.6 (0.8-1.8); Bun/Creatinine Ratio 37.9 (12.0-20.0); Calcium, Blood 8.1 mg/dL (8.5-10.1); Creatinine, Blood 1.53 mg/dL (0.40-1.00); Globulin, Blood 3.6 g/dL (2.2-4.0); Potassium, Blood 3.6 mmol/L (3.5-5.5); Total Protein, Blood 5.6 g/dL (6.4-8.2)
--- NOTE | 2021-05-28 06:45 | NUR ---
SHIFT SUMMARY PT RESTED FAIRLY WELL, A/O X 2-3 WITH PERIODS OF CONFUSION NOTED. SLING IN PLACE TO R ARM DUE TO RECENT INJURY, MARI PATENT WITH ADEQUATE URINE OUTPUT. SKIN EXCORIATED TO ELGIN AREA/ GROIN, PT INCONTINENT OF BM X 2, SKIN CLEANED AND CREAM APPLIED. 2-3+ EDEMA NOTED TO BLE'S, VSS, REPOSITIONED FOR COMFORT AND TO PREVENT SKIN BREAKDOWN. PINK, DRY SKIN NOTED UNDER ABD FOLDS AND BREASTS, MED PER MAR. ANTICIPATE D/C WHEN MEDICALLY STABLE AND PLACEMENT DETERMINED.
[2021-05-28 09:16] LABS: Albumin/Globulin Ratio 0.6 (0.8-1.8); Bilirubin, Total 5.9 mg/dL (0.1-1.0); Bun/Creatinine Ratio 35.7 (12.0-20.0); Calcium, Blood 8.2 mg/dL (8.5-10.1); Creatinine, Blood 1.57 mg/dL (0.40-1.00); Globulin, Blood 3.6 g/dL (2.2-4.0); Potassium, Blood 3.9 mmol/L (3.5-5.5); Total Protein, Blood 5.6 g/dL (6.4-8.2)
[2021-05-28 13:57] LABS: Influenza A, PCR NEGATIVE (NEGATIVE); Influenza B, PCR NEGATIVE (NEGATIVE); Resp Syncytial Virus, PCR NEGATIVE (NEGATIVE)
[2021-05-28] MEDS ORDERED: NYSTRIT TOP (13:59)
[2021-05-28] MEDS ORDERED: VISBIOME 112.51 EACH PO (14:00)
[2021-05-28 14:17] LABS: SARS-Cov-2 (COVID-19) PCR, MMC POSITIVE (NEGATIVE)
[2021-05-28 15:35] LABS: SARS-Cov-2 (COVID-19) Antigen Negative (NEGATIVE)
--- NOTE | 2021-05-28 16:53 | NUR ---
REPORT CALLED TO [facility] AT [facility]. PT DC'D AT 1645 VIA JAMIR, WILL CALL AND NOTIFY SPOUSE. PT HAS HAD 2 LIUID INCONT STOOLS THIS SHIFT. SKIN TO ELGIN AREA EXCORIATED, PER DR DAVIDSON LEAVE MARI IN PLACE FOR APROX 2 WEEKS AT CARE FACILITY TO PREVENT FURHTER SKIN IRRITATION. PG DC'D INTACT.
--- NOTE | 2021-05-28 16:57 | NUR ---
ATTEMPTED TO CALL SPOUSE TO NOTIFY OF D/C, NO ANSWER. MESSAGE LEFT.
== END 2021-05-28 16:46 | DRG 871 ==
LOC: PCU 17:45 → ICUW 17:45 → MEDS 05-23 17:14
PROVIDERS: Family Medicine; Internal Medicine; ADMIT Internal Medicine
PROC: 30233N1 Transfusion of Nonautologous Red Blood Cells into Peripheral Vein, Percutaneous Approach (ICD-10-PCS; principal; 2021-05-20)
PROC: 3E03329 Introduction of Other Anti-infective into Peripheral Vein, Percutaneous Approach (ICD-10-PCS; 2021-05-20)
DX: A41.51 Sepsis due to Escherichia coli [E. coli] (principal); R65.21 Severe sepsis with septic shock; G93.41 Metabolic encephalopathy; N39.0 Urinary tract infection, site not specified; I50.32 Chronic diastolic (congestive) heart failure; N17.9 Acute kidney failure, unspecified; E87.1 Hypo-osmolality and hyponatremia; E86.0 Dehydration; F32.A Depression, unspecified; F41.9 Anxiety disorder, unspecified; I11.0 Hypertensive heart disease with heart failure; E80.6 Other disorders of bilirubin metabolism; D69.6 Thrombocytopenia, unspecified; E66.9 Obesity, unspecified; D53.9 Nutritional anemia, unspecified; Z53.29 Procedure and treatment not carried out because of patient's decision for other reasons; Z20.822 Contact with and (suspected) exposure to COVID-19; K70.30 Alcoholic cirrhosis of liver without ascites; F10.20 Alcohol dependence, uncomplicated; R19.7 Diarrhea, unspecified; E83.42 Hypomagnesemia; Z85.048 Personal history of other malignant neoplasm of rectum, rectosigmoid junction, and anus; Z90.710 Acquired absence of both cervix and uterus; Z79.899 Other long term (current) drug therapy; Z87.891 Personal history of nicotine dependence; Z88.8 Allergy status to other drugs, medicaments and biological substances; Z86.718 Personal history of other venous thrombosis and embolism; Z98.890 Other specified postprocedural states; Z85.828 Personal history of other malignant neoplasm of skin
CPT/HCPCS: 0241U; 36415; 36430; 36556; 71045; 76705; 76770; 80053; 81001; 82140; 82728; 83540; 83550; 83605; 83735; 84100; 84443; 85014; 85018; 85025; 85027; 86140; 86850; 86900; 86901; 86923; 87077; 87086; 87186; 87324; 87426; 87493; 97110; 97112; 97162; 97165; 97530; 97535; A9270; C1751; C9803; J0696; J3010; J3475; J7050; J7060; J7120; P9016; P9046